=== PATIENT | female | born 1995 | race Two or more races ===

== ENCOUNTER 2023-06-25 22:59 | Emergency (ER) | payer OTHER ==
[~2023-06-25] VITALS: Ht 157.5 cm; Wt 101.2 kg
[2023-06-26] MEDS ORDERED: KETOROLAC TROMETHAMINE 60 MG VIAL IM STA (01:55)
[2023-06-26] MEDS ORDERED: CEFTRIAXONE SODIUM 1,000 MG VIAL IV STA (01:55)
[2023-06-26 02:46] LABS: HEMATOCRIT 39.4 % (36.0-45.00); HEMOGLOBIN 13.6 g/dL (12.0-15.00); MEAN CELL VOLUME 85.5 fL (80.00-100.00); MEAN CORPUSCULAR HEMOGLOBIN 29.5 pg (27.00-32.0); MEAN CORPUSCULAR HGB CONC 34.5 g/dl (32.0-36.0); PLATELET COUNT 231 K/uL (150-450); RED BLOOD COUNT 4.61 M/uL (4.00-6.00)
[2023-06-26 02:53] LABS: INR 1.01; PARTIAL THROMBOPLASTIN TIME 34.3 SECONDS (22.0-34.0); PROTHROMBIN TIME 10.6 SECONDS (9.0-11.5)
[2023-06-26 03:00] LABS: CREATININE SERUM 0.72 mg/dL (0.55-1.02); GFR 95.11; POTASSIUM 3.73 mEq/L (3.5-5.1)
[2023-06-26] MEDS ORDERED: CEPHALEXIN750 MG PO (04:21)
[2023-06-26] MEDS ORDERED: KETO10TA2 PO (04:21)
== END 2023-06-26 04:31 ==
LOC: ER 22:59
PROVIDERS: General Practice
DX: N61.0 Mastitis without abscess (principal)

== ENCOUNTER 2024-04-30 06:40 | Day surgery (SDC) | payer OTHER ==
[2024-04-28 09:50] LABS: PH,URINE 5.5 (5.0-8.0); URINE APPEARANCE Clear; URINE BILIRRUBIN Negative (NEGATIVE); URINE BLOOD Negative; URINE COLOR Yellow; URINE GLUCOSE Negative (NEGATIVE); URINE KETONE Trace (NEGATIVE); URINE LEUKOCYTE Small; URINE NITRATE Negative; URINE PROTEIN Negative (NEGATIVE); URINE UROBILINOGEN 0.2 E.U./dl
[2024-04-28 09:55] LABS: URINE BACTERIA 922.8 uL (0.0-1933); URINE EPITHELIAL CELLS 72.3 uL (0.0-38.8); URINE RBC 3.9 uL (0.0-20.8); URINE WBC 78.8 uL (0.0-23.2)
[2024-04-28 10:09] LABS: PARTIAL THROMBOPLASTIN TIME 32.5 SECONDS (22.0-34.0); PROTHROMBIN TIME 10.9 SECONDS (9.0-11.5)
[2024-04-28 10:11] LABS: URINE CAST 0.44 uL (0.0-1.40)
[2024-04-28 10:13] LABS: HEMATOCRIT 40.9 % (36.0-45.00); HEMOGLOBIN 13.9 g/dL (12.0-15.00); MEAN CELL VOLUME 83.6 fL (80.00-100.00); MEAN CORPUSCULAR HEMOGLOBIN 28.4 pg (27.00-32.0); PLATELET COUNT 238 K/uL (150-450); RED BLOOD COUNT 4.89 M/uL (4.00-6.00); RED CELL DISTRIBUTION WIDTH 13.9 % (11.5-14.5)
[2024-04-28 10:50] LABS: ALBUMIN 3.7 gm/dL (3.4-5.0); BILIRUBIN TOTAL 0.43 mg/dL (0.3-1.2); CALCIUM 9.3 mg/dL (8.5-10.1); CREATININE SERUM 0.6 mg/dL (0.55-1.02); GFR 116.6; GLOBULINA 3.6 G/DL (2.4-3.5); POTASSIUM 4.16 mEq/L (3.5-5.1); TOTAL PROTEIN 7.3 gm/dL (6.4-8.2)
[2024-04-28 13:11] VITALS: BP 109/75
[~2024-04-30] VITALS: Ht 157.5 cm; Wt 108.9 kg
[~2024-04-30 06:40] MED LIST: CEPHALEXIN750 MG PO; KETO10TA2 PO
[2024-04-30] MEDS ORDERED: CLINDAMYCIN PHOSPHATE 150 MG/ML (900mg) ONE (09:29)
[2024-04-30] MEDS ORDERED: POVIDONE-IODINE SCRUB 118 ML BOTT TOP ONE (13:25)
[2024-04-30] MEDS ORDERED: POVIDONE-IODINE 118 ML BOTT TOP ONE ×2 (13:25→14:48)
[2024-04-30] MEDS ORDERED: CEFAZOLIN SODIUM 1,000 MG VIAL ONE (14:48)
[2024-04-30] MEDS ORDERED: GENTAMICIN SULFATE 40 MG/ML VIAL ONE (14:48)
[2024-04-30] MEDS ORDERED: VANCOMYCIN HCL 1,000 MG VIAL ONE (14:48)
[2024-04-30] MEDS ORDERED: BUPIVACAINE HCL/MPF 0.5% 30ML VIAL ONE (14:57)
[2024-04-30] MEDS ORDERED: ONDANSETRON HCL 2 MG/ML VIAL ONE (16:17)
[2024-04-30] MEDS ORDERED: ONDANSETRON HCL 2 MG/ML VIAL IV ONE (16:20)
[2024-04-30] MEDS ORDERED: MORPHINE SULFATE 4 MG/ML VIAL IV ONE (16:40)
== END 2024-04-30 17:50 | disposition home or self-care (01) ==
LOC: CIR.AMB 06:40
PROVIDERS: ATTEND Surgery
DX: C50.411 Malignant neoplasm of upper-outer quadrant of right female breast (principal); R59.0 Localized enlarged lymph nodes; N62 Hypertrophy of breast; Z90.11 Acquired absence of right breast and nipple

== ENCOUNTER → 2024-05-14 | Emergency (ER) | payer OTHER ==
[~2024-05-14] VITALS: Ht 157.5 cm; Wt 97.5 kg
== END | disposition left against medical advice (07) ==
LOC: ER 22:06
DX: Z53.21 Procedure and treatment not carried out due to patient leaving prior to being seen by health care provider (principal)